=== PATIENT | female | born 1970 | race Caucasian/White ===

== ENCOUNTER 2018-03-21 06:04 | Inpatient (IN) | payer BC, OTHER ==
[2018-03-19 17:39] VITALS: BMI 28.5
[2018-03-21] MEDS ORDERED: fentaNYL CITRATE 250 MCG/5 ML VIAL ONE (07:10)
[2018-03-21] MEDS ORDERED: ROCURONIUM BROMIDE 50 MG/5 ML VIAL ONE ×2 (07:11→09:11)
[2018-03-21] MEDS ORDERED: SUCCINYLCHOLINE CHLORIDE 200 MG/10 ML VIAL ONE (07:11)
[2018-03-21] MEDS ORDERED: PROPOFOL 20 ML ONE (07:11)
[2018-03-21] MEDS ORDERED: DEXAMETHASONE SOD PHOSPHATE 4 MG/1 ML VIAL ONE (07:11)
[2018-03-21] MEDS ORDERED: CEFAZOLIN 1 GM in DEXTROSE 5%-WATER - 100 ML IVPB ONE (07:11)
[2018-03-21] MEDS ORDERED: LIDOCAINE HCL/PF 2% SDV 5ML VIAL ONE (07:11)
--- NOTE | 2018-03-21 07:11 | HP ---
History & Physical Update - History History: No Change - Physical Physical: No Change - Assessment Assessment: No Change - Plan Plan: No Change (full H&P in chart from 03/11/[address] Weiss)
[2018-03-21] MEDS ORDERED: DEXAMETHASONE SOD PHOSPHATE/PF 10 MG/ML SDV ONE (07:16)
[2018-03-21] MEDS ORDERED: ROPIVACAINE HCL 0.5% 30ML VIAL ONE (07:16)
[2018-03-21] MEDS ORDERED: BUPIVACAINE HCL/PF 0.5% (5MG/ML) 10 ML VIAL ONE (07:18)
[2018-03-21] MEDS ORDERED: MIDAZOLAM HCL 2 MG/2 ML SINGLE DOSE VIAL ONE ×2 (07:20)
[2018-03-21] MEDS ORDERED: ceFAZolin SODIUM 1 GM VIAL IVPB ONE (08:00)
[2018-03-21] MEDS ORDERED: ceFAZolin SODIUM 1 GM VIAL ONE ×3 (08:02→23:56)
[2018-03-21] MEDS ORDERED: METHYLENE BLUE 1% 10 MG/1 ML VIAL NR ONE (09:15)
[2018-03-21] MEDS ORDERED: NEOSTIGMINE METHYLSULFATE 0.5 MG/ML - 10 ML MDV ONE (10:05)
[2018-03-21] MEDS ORDERED: GLYCOPYRROLATE 0.2 MG/1 ML VIAL ONE (10:05)
[2018-03-21] MEDS ORDERED: BUPIVACAINE HCL/PF 0.5% (5MG/ML) 10 ML VIAL IJ ONE (10:14)
--- NOTE | 2018-03-21 11:01 | OP ---
DATE OF OPERATION: 03/21/2018 PREOPERATIVE DIAGNOSES: Leiomyomatous uterus, pelvic pain, intramural myomas, menorrhagia. OPERATION: Robotic, laparoscopic-attempted hysterectomy and exploratory laparotomy and total abdominal hysterectomy with bilateral salpingectomy and enterolysis. SURGEON: Ana Lilia Weiss MD CLOUD ENGINEER: NAIF Martin ANESTHESIA: General. NURSE PASTE MIXING SUPERVISOR: PROCEDURE: Patient was taken to the operating room and placed in dorsal lithotomy position, prepped and draped in the usual sterile fashion. Timeout was performed in accordance with hospital regulation. The cervix was grasped with a tenaculum. Cervix was dilated, and a Fublesare uterine manipulator was then inserted into the uterus. Kaba catheter was then placed. Attention was then drawn to the umbilicus where an 8-mm umbilical incision was made. Veress needle was inserted into the cavity. Approximately 3-4 L of CO2 was insufflated in the cavity. Veress needle was then removed, and an 8-mm trocar was then inserted. Laparoscope and camera were attached. Visualization revealed numerous bowel adhesions, severe and dense against the uterus. Two trocars were placed on the left parallel to the uterus and in the upper abdomen on the left side, and the AirSeal cannula was inserted. Two trocars were also inserted on the right side after incisions were made. Trocars were inserted under direct visualization. Patient was placed in steep Trendelenburg, and da Sury robot was side docked to the patient's arm. Trocars were then attached to the da Sury, and instruments were then inserted. Vessel sealer was inserted on the left, and EndoShears and tenaculum were inserted on the right. Numerous adhesions were seen. Bowel was stuck both on the left and the right side and also posterior to the uterus. Bowel grasper was then used to grasp the bowel, and EndoShears were then used to cut the adhesions. Uterus was noted to be very large, and due to inability to see after enterolysis had been performed laparoscopically with the robot and round ligaments identified and clamped and cut using vessel sealer, a decision was made to open the patient, and exploratory laparotomy was done. A Pfannenstiel skin incision was made with a scalpel. Cautery was then used to go through the layers of the abdominal wall to the level of the fascia. Fascia was cut in the midline. Cautery was then used to open the fascia in the following fashion. Kochers were then used to bluntly and sharply dissect the rectus muscle off the fascia. Muscles split in the midline. Peritoneal cavity was then entered and carried upward and downward. Uterus was then exteriorized. Multiple myomas were noted. Bowel was then still severely attached to the posterior aspect of the uterus. Lap pad was then used to remove the bowel from the uterus. The utero-ovarian ligaments identified, both on the left and the right. LigaSure was then used to clamp and cut the ligament. The uterine arteries were then skeletonized, and clamped and cut. Cardinal ligament was identified and clamped and cut after bowel was dissected out of the operative field. Methylene blue was given to the patient, and blue was seen coming out of the Kaba. The same procedure was repeated on the other side. Cervix was then identified. Decision was made to amputate at the cervical level. Cautery was then used to cut the cervix and remove the specimen, and the cervix was then removed using Binu scissors. The vagina was then closed using continuous and locking suture. Hemostasis was achieved. The tubes were bilaterally grasped and removed using LigaSure. Ovaries were still intact and attached to the infundibulopelvic ligament. Irrigation done. Interceed placed on the cuff after hemostasis had been achieved. Bowel was then looked at, and some serosa area was noted defect. Some 2-0 interrupted sutures were then placed on the serosa of the bowel. Two interrupted 2-0 Vicryls were placed on the bowel. Hemostasis was achieved. Packing was removed. Pack count noted to be normal. Peritoneum closed using 0 Vicryl suture. Abdominal sweep had been done. Ovaries were left in place. Peritoneum closed using 0 Vicryl suture, and muscle approximated midline using 0 Vicryl suture. Fascia was then closed using a 0 Vicryl suture in 2 parts. Subcutaneous was closed using interrupteds using 0 Vicryl suture. Skin was then closed using 3-0 Vicryl suture in subcuticular fashion. All incisions of the trocars were closed also with 3-0 Vicryl suture. Wound was washed and dressed. The patient had tolerated the procedure well. Estimated blood loss: 550 mL. Patient was taken to recovery room in stable condition. Beena [id number]
[2018-03-21] MEDS ORDERED: ONDANSETRON 4 MG/2 ML VIAL IVPUSH PRN (11:06)
--- NOTE | 2018-03-21 11:10 | OP ---
Operative Note - Note: Operative Date: 03/21/18 Pre-Operative Diagnosis: leimyomatous uterus Operation: robotic assisted converted to open abdominal hysterectomy with OBED, serosal tear repair, bilateral salpingectomy. Surgeon: Ana Lilia Weiss Night Auditor: Luna Rivera Anesthesiologist/SUPERVISOR SANDBLASTER: Alem Vernon Anesthesia: General Estimated Blood Loss (mls): 550 Drains, Volume Out (mls): 250 (lovell) Fluid Volume Replaced (mls): 2,600 Operative Report Dictated: Yes
[2018-03-21] MEDS: LACTATED RINGERS SOLUTION 1,000 ML/1,000 ML INFUS.BAG IV SCH (12:00)
[2018-03-21] MEDS ORDERED: HYDROmorphone *PCA* 10MG/50ML DISP.SYRIN PCA SCH (12:00)
[2018-03-21 12:03] LABS: BASO % 0.6 % (0-2.0); HEMATOCRIT 32.9 % (32.4-45.2); HEMOGLOBIN 10.7 GM/dL (10.7-15.3); LYMPH % 7.8 % (8-40); MCH 27.8 pg (25.7-33.7); MCHC 32.7 g/dl (32.0-36.0); MEAN PLT VOLUME 7.6 fl (7.5-11.1); MONO % 1.1 % (3.8-10.2); NEUT % 90.5 % (42.8-82.8); PLATELET COUNT 337 K/MM3 (134-434); RBC 3.87 M/mm3 (3.60-5.2); RDW 15.7 % (11.6-15.6)
--- NOTE | 2018-03-21 15:24 | SURG ---
Surgery Cellophane Casting Machine Repairer Note Cellophane Casting Machine Repairer: Luna Rivera PA-C Date of Service: 03/21/18 Diagnosis: leimyomatous uterus Procedure: robotic assisted converted to open abdominal hysterectomy with OBED, serosal tear repair, bilateral salpingectomy I was present for the entirety of the operative procedure. For further detail, please refer to operative report.
[2018-03-21] MEDS ORDERED: DEXTROSE 5%-WATER - 50 ML IVPB ONE ×2 (15:57→23:56)
[2018-03-21] MEDS: CEFAZOLIN 1 GM in DEXTROSE 5%-WATER - 50 ML IVPB SCH (16:04)
[2018-03-21 17:32] LABS: BASO % 0.1 % (0-2.0); HEMATOCRIT 32.6 % (32.4-45.2); HEMOGLOBIN 10.6 GM/dL (10.7-15.3); LYMPH % 5.3 % (8-40); MCH 27.5 pg (25.7-33.7); MCHC 32.6 g/dl (32.0-36.0); MEAN CELL VOLUME 84.1 fl (80-96); MEAN PLT VOLUME 7.9 fl (7.5-11.1); MONO % 2.9 % (3.8-10.2); NEUT % 91.7 % (42.8-82.8); PLATELET COUNT 328 K/MM3 (134-434); RBC 3.88 M/mm3 (3.60-5.2); RDW 15.4 % (11.6-15.6); WHITE BLOOD COUNT 9.3 K/mm3 (4.0-10.0)
[2018-03-21 18:17] LABS: ANION GAP 8 (8-16); BLOOD UREA NITROGEN 13 mg/dL (7-18); CALCIUM 7.9 mg/dL (8.5-10.1); CHLORIDE 104 mmol/L (98-107); CO2 27 mmol/L (21-32); CREATININE 0.6 mg/dL (0.55-1.02); GLUCOSE,RANDOM 134 mg/dL (74-106); POTASSIUM 4.1 mmol/L (3.5-5.1); SODIUM 139 mmol/L (136-145)
[2018-03-21 23:05] LABS: PLATELET ESTIMATE ADEQUATE
[2018-03-22] MEDS: CEFAZOLIN 1 GM in DEXTROSE 5%-WATER - 50 ML IVPB SCH (00:05)
[2018-03-22] MEDS: LEVOTHYROXINE NA 125 MCG TABLET (FP) PO SCH (06:25)
[2018-03-22 08:03] LABS: BASO % 0.5 % (0-2.0); EOS % 0.2 % (0-4.5); HEMATOCRIT 28.4 % (32.4-45.2); HEMOGLOBIN 9.5 GM/dL (10.7-15.3); MCH 28.4 pg (25.7-33.7); MCHC 33.6 g/dl (32.0-36.0); MEAN CELL VOLUME 84.5 fl (80-96); MEAN PLT VOLUME 7.4 fl (7.5-11.1); MONO % 10.3 % (3.8-10.2); PLATELET COUNT 288 K/MM3 (134-434); RBC 3.36 M/mm3 (3.60-5.2); RDW 15.2 % (11.6-15.6); WHITE BLOOD COUNT 8.2 K/mm3 (4.0-10.0)
[2018-03-22 08:19] LABS: ANION GAP 5 (8-16); BLOOD UREA NITROGEN 12 mg/dL (7-18); CHLORIDE 104 mmol/L (98-107); CO2 31 mmol/L (21-32); CREATININE 0.7 mg/dL (0.55-1.02); GLUCOSE,RANDOM 90 mg/dL (74-106); POTASSIUM 4.3 mmol/L (3.5-5.1); SODIUM 140 mmol/L (136-145)
--- NOTE | 2018-03-22 09:03 | PN ---
Progress Note, Physician Chief Complaint: Pt seen/evaluated. Doing well. Feels sore, but no other complaints. Lovell catheter draining clear yellow urine. No CP/SOB/F/C/AL. Tolerating clears. - Current Medication List Current Medications: Active Medications Acetaminophen (Tylenol -) 650 mg PO Q4H PRN PRN Reason: PAIN LEVEL 1-5 Enoxaparin Sodium (Lovenox -) 40 mg SQ DAILY [facility] Fentanyl (Sublimaze Injection -) 50 mcg IVPUSH [id number] PRN PRN Reason: PAIN-PACU ORDER X 4 DOSES ONLY Last Admin: 03/21/18 11:35 Dose: 50 mcg Hydromorphone HCl (Dilaudid Hand Cloth Cutter -) 10 mg SALES MERCHANDISER SALES MERCHANDISER [facility]; Protocol Stop: 03/24/18 11:48 Last Admin: 03/21/18 12:00 Dose: 10 mg Lactated Ringer's (Lactated Ringers Solution) 1,000 ml in 1,000 mls @ 125 mls/ hr IV ASDIR [facility] Last Admin: 03/21/18 12:00 Dose: 125 mls Levothyroxine Sodium (Synthroid -) 125 mcg PO DAILY@0700 [facility] Last Admin: 03/22/18 06:25 Dose: 125 mcg Ondansetron HCl (Zofran Injection) 4 mg IVPUSH Q6H PRN PRN Reason: NAUSEA AND/OR VOMITING - Objective Vital Signs: Vital Signs Temperature 98.3 F 03/22/18 06:00 Pulse Rate 74 03/22/18 06:00 Respiratory Rate 20 03/22/18 06:00 Blood Pressure 108/67 03/22/18 06:00 O2 Sat by Pulse Oximetry (%) 98 03/21/18 13:00 Constitutional: Yes: Well Nourished, No Distress, Calm Eyes: Yes: WNL HENT: Yes: WNL Respiratory: Yes: WNL Gastrointestinal: Yes: Soft, Tenderness (appropriate post surgical tenderness) Extremities: Yes: WNL Wound/Incision: Yes: Clean/Dry, Dressing Dry and Intact Psychiatric: Yes: Alert, Oriented Labs: CBC, BMP 03/22/18 07:30 03/22/18 07:30 Problem List - Problems (1) History of abdominal hysterectomy Code(s): Z90.710 - ACQUIRED ABSENCE OF BOTH CERVIX AND UTERUS Assessment/Plan 47 y/o POD#1 s/p robotic converted to EFRAIN, OBED, b/l salpingectomy AFVSS Hgb 9.5, will monitor, asymptomatic advance diet as tolerated dc lovell later today encourage ambulation this afternoon routine post op care
--- NOTE | 2018-03-22 09:19 | PN ---
Progress Note (short form) - Note Progress Note: Post op day#1.S/P EFRAIN with bilateral salpingectomy under Ga uneventful.Patient stable and has pain score of 2-3/10.So will Dc MATERIAL HANDLING WAREHOUSE SUPERVISOR and put patient on PRN pain medication.No any anesthesia related problem.Patient Dc from the anesthesia care.
[2018-03-22] MEDS ORDERED: ENOXAPARIN NA (PORCINE) 30 MG/0.3 ML DISP.SYRIN SQ SCH (10:00)
[2018-03-22] MEDS ORDERED: LEVOTHYROXINE NA 75 MCG TABLET (FP) PO SCH (10:00)
[2018-03-22] MEDS ORDERED: HYDROmorphone HCL CARPU-JECT 1 MG/1 ML DISP.SYRIN IVPB PRN (10:15)
[2018-03-22] MEDS: ENOXAPARIN NA (PORCINE) 40 MG/0.4 ML DISP.SYRIN SQ SCH (10:37)
[2018-03-22] MEDS: ACETAMINOPHEN 325 MG TABLET (FP) PO PRN ×3 (10:58→19:22)
[2018-03-22] MEDS: oxyCODONE HCL 5 MG TABLET PO PRN ×3 (10:59→19:19)
[2018-03-22] MEDS: LACTATED RINGERS SOLUTION 1,000 ML/1,000 ML INFUS.BAG IV SCH (12:39)
--- NOTE | 2018-03-22 15:13 | PN ---
Progress Note (short form) - Note Progress Note: Surgery POD #1 robotic converted to open hysterectomy. Patient seen and examined at bedside c/o some nausea and vomiting x2 with movement while getting OOB. Her ELECTRONIC TESTER has been d/c's and her pain is managed with oral medications. Her lovell removed about an hour ago but she has not yet voided. She is tolerating a regular diet and passing flatus but still with some nausea. Vital Signs Temp 98.8 F 03/22/18 09:00 Pulse 78 03/22/18 09:00 Resp 20 03/22/18 09:00 BP 103/62 03/22/18 09:00 Pulse Ox 98 03/21/18 13:00 Intake & Output 03/21/18 03/22/18 03/22/18 23:59 11:59 23:59 Intake Total 925 1850 Output Total 1150 650 Balance -225 1200 Intake: IV 875 1400 LACTATED RINGERS SOLUTION 750 1400 1,000 ml In 1,000 ml @ 125 mls/hr IV ASDIR ESTELA Rx#:[id number] IVPB 50 50 Oral 400 Output: Urine 1150 650 Lovell 800 650 Other: Voiding Method Indwelling Catheter Indwelling Catheter PE: A&OX3, NAD unlabored resp on RA ABD: Obese,soft and mildly ttp throughout mostly at the midline-appropriate to status. dressings c/d/i with no evidence of erythema or ecchymosis. Incision with steri strips and c/d/i with no d/c. b/l LE compartments soft, supple and non-tender with +2 pedal pulses. Problem List - Problems (1) S/P abdominal hysterectomy Assessment/Plan: POD #1 doing well with nausea and vomiting resolving. 1) DVT prophylaxis 2) OOB as tolerated 3) pain control 4) encourage IS 5) d/c planning for home possibly tomorrow. Evaluation and plan discussed with Dr Weiss Code(s): Z90.710 - ACQUIRED ABSENCE OF BOTH CERVIX AND UTERUS (2) History of abdominal hysterectomy Code(s): Z90.710 - ACQUIRED ABSENCE OF BOTH CERVIX AND UTERUS
[2018-03-22] MEDS ORDERED: PCA PUMP KEY 1 EACH EACH ONE (16:42)
[2018-03-23] MEDS: oxyCODONE HCL 5 MG TABLET PO PRN ×3 (01:44→20:44)
[2018-03-23] MEDS: ACETAMINOPHEN 325 MG TABLET (FP) PO PRN ×3 (01:47→20:45)
--- NOTE | 2018-03-23 02:59 | DS ---
"Physical Examination Vital Signs: Vital Signs Temperature 99 F 03/22/18 22:00 Pulse Rate 76 03/22/18 22:00 Respiratory Rate 20 03/22/18 22:00 Blood Pressure 102/56 03/22/18 22:00 O2 Sat by Pulse Oximetry (%) 98 03/21/18 13:00 Labs: CBC, BMP 03/22/18 07:30 03/22/18 07:30 Discharge Summary Reason For Visit: LEIOMYOMATOUS UTERUS Current Active Problems History of abdominal hysterectomy (Acute) S/P abdominal hysterectomy (Acute) Procedures: Principal: EFRAIN, Bilateral salpingectomy, OBED Hospital Course: Pt admitted on 03/21/18 for scheduled Robotic Laparoscopic Hysterectomy with bilateral salpingectomy. Pt underwent procedure which was converted to EFRAIN/ OBED/ bilateral salpingectomy. The patient underwent a post op recovery complicated by nausea. On post op day 3 the patient was discharged home in stable condition. Condition: Good - Instructions Diet, Activity, Other Instructions: Dr. Ana Lilia Weiss Sales Representative [employer] discharge instructions Physical activity Resume your normal everyday activity as tolerated no heavy lifting or exercise until seen by your surgeon. You may walk unlimited radha of and climb stairs. You may resume driving the car when you feel safe and comfortable behind the wheel. No sexual activity as instructed by Dr. Weiss. Wound care If you have a bandage, leave it on, and keep dry for 48-72 hours. After that time discard the outer bandage. If they are tapes on the skin under the out of bandage leave them in place. They will peel off in the next 7 to 10 days. Do Not Peel them off. You may shower the day after surgery. If there are tapes present on the skin, you may shower over them. Diet There are no dietary restrictions. Eat healthy, high-fiber foods. Drink 6 to 8 glasses of liquid each day. This will assist in keeping your bowels are regular. Pain management You may take Tylenol or acetaminophen or Ibuprofen (for example, Motrin, Advil etc.) from my pain prescription medication is ordered should be taken as prescribed for moderate to severe pain. Call Dr. Weiss for any of the following: Severe pain not relieved by medication Fever of 101 or higher Excessive bleeding or drainage on dressing Inability to urinate Call the office for an appointment in seven days. [place] Prescription Monitoring report was requested by: Hemalatha Rosas | Reference #: [id number] Search Terms: ewelinara grimes, 1970 Search Date: 03/21/2018 01:23:35 PM Disposition: HOME - Home Medications Comprehensive Discharge Medication List: Ambulatory Orders Levothyroxine [Synthroid -] 75 mg PO DAILY 03/19/18 Oxycodone HCl/Acetaminophen [Percocet 5-325 mg Tablet] 1 - 2 tab PO Q4H PRN #20 tablet MDD 6 03/22/18"
[2018-03-23] MEDS: LEVOTHYROXINE NA 125 MCG TABLET (FP) PO SCH (06:40)
--- NOTE | 2018-03-23 07:27 | PN ---
Progress Note, Physician Chief Complaint: Pt with vomiting yesterday and some nausea this a.m. Tolerating minimal clears. NO CP/F/C/SOB. Pain in RLQ under incision. - Current Medication List Current Medications: Active Medications Acetaminophen (Tylenol -) 650 mg PO Q4H PRN PRN Reason: PAIN LEVEL 1-5 Last Admin: 03/23/18 01:47 Dose: 650 mg Enoxaparin Sodium (Lovenox -) 40 mg SQ DAILY [facility] Last Admin: 03/22/18 10:37 Dose: 40 mg Fentanyl (Sublimaze Injection -) 50 mcg IVPUSH [id number] PRN PRN Reason: PAIN-PACU ORDER X 4 DOSES ONLY Last Admin: 03/21/18 11:35 Dose: 50 mcg Hydromorphone HCl (Dilaudid Bottom Bleacher -) 10 mg NUCLEAR FUEL PROCESSING TECHNICIAN NUCLEAR FUEL PROCESSING TECHNICIAN [facility]; Protocol Stop: 03/24/18 11:48 Last Admin: 03/21/18 12:00 Dose: 10 mg Hydromorphone HCl (Dilaudid Injection -) 1 mg IVPB Q4H PRN PRN Reason: PAIN LEVEL 6-10 Lactated Ringer's (Lactated Ringers Solution) 1,000 ml in 1,000 mls @ 125 mls/ hr IV ASDIR [facility] Last Admin: 03/22/18 12:39 Dose: 125 mls/hr Levothyroxine Sodium (Synthroid -) 125 mcg PO DAILY@0700 [facility] Last Admin: 03/23/18 06:40 Dose: 125 mcg Ondansetron HCl (Zofran Injection) 4 mg IVPUSH Q6H PRN PRN Reason: NAUSEA AND/OR VOMITING Last Admin: 03/22/18 15:55 Dose: 4 mg Oxycodone HCl (Roxicodone -) 5 mg PO Q3H PRN PRN Reason: PAIN LEVEL 1-5 Last Admin: 03/23/18 01:44 Dose: 5 mg - Objective Vital Signs: Vital Signs Temperature 98.5 F 03/23/18 05:51 Pulse Rate 70 03/23/18 05:51 Respiratory Rate 18 03/23/18 05:51 Blood Pressure 105/66 03/23/18 05:51 O2 Sat by Pulse Oximetry (%) 98 03/21/18 13:00 Constitutional: Yes: Well Nourished, No Distress, Calm Eyes: Yes: Conjunctiva Clear, EOM Intact HENT: Yes: Atraumatic, Normocephalic Neck: Yes: Supple, Trachea Midline Cardiovascular: Yes: Regular Rate and Rhythm Respiratory: Yes: Regular, CTA Bilaterally Gastrointestinal: Yes: Soft, Tenderness (appropriate RLQ post surgical tenderness) Wound/Incision: Yes: Well Approximated, Sutures Intact, Steri Strips, Open to air Neurological: Yes: Alert, Oriented Psychiatric: Yes: Alert, Oriented Labs: CBC, BMP 03/22/18 07:30 03/22/18 07:30 Problem List - Problems (1) History of abdominal hysterectomy Code(s): Z90.710 - ACQUIRED ABSENCE OF BOTH CERVIX AND UTERUS (2) Nausea Code(s): R11.0 - NAUSEA Assessment/Plan 47 y/o POD#2 s/p robotic converted to EFRAIN, OBED, b/l salpingectomy AFVSS Hgb 9.5 yesterday pt with some nausea, trying clears again this a.m. - advance diet as tolerated encourage ambulation this afternoon routine post op care if able to tolerate diet ok for d/c home today
[2018-03-23 08:18] LABS: EOS % 1.4 % (0-4.5); HEMOGLOBIN 8.8 GM/dL (10.7-15.3); LYMPH % 26.4 % (8-40); MCH 28.6 pg (25.7-33.7); MCHC 33.8 g/dl (32.0-36.0); MEAN CELL VOLUME 84.5 fl (80-96); MEAN PLT VOLUME 7.2 fl (7.5-11.1); MONO % 8.2 % (3.8-10.2); PLATELET COUNT 269 K/MM3 (134-434); RBC 3.08 M/mm3 (3.60-5.2); RDW 15.6 % (11.6-15.6); WHITE BLOOD COUNT 5.7 K/mm3 (4.0-10.0)
[2018-03-23 08:48] LABS: CHLORIDE 101 mmol/L (98-107); POTASSIUM 3.6 mmol/L (3.5-5.1); SODIUM 136 mmol/L (136-145)
[2018-03-23 08:58] LABS: ANION GAP 7 (8-16); BLOOD UREA NITROGEN 7 mg/dL (7-18); CO2 28 mmol/L (21-32); CREATININE 0.6 mg/dL (0.55-1.02); GLUCOSE,RANDOM 87 mg/dL (74-106)
[2018-03-23] MEDS: PANTOPRAZOLE 20 MG TABLET (FP) PO SCH ×2 (09:14→21:26)
[2018-03-23] MEDS: ENOXAPARIN NA (PORCINE) 40 MG/0.4 ML DISP.SYRIN SQ SCH (09:14)
[2018-03-24] MEDS: LEVOTHYROXINE NA 125 MCG TABLET (FP) PO SCH (06:26)
[2018-03-24] MEDS: oxyCODONE HCL 5 MG TABLET PO PRN ×2 (06:31→09:59)
[2018-03-24] MEDS: ACETAMINOPHEN 325 MG TABLET (FP) PO PRN ×2 (06:32→09:59)
[2018-03-24] MEDS: ENOXAPARIN NA (PORCINE) 40 MG/0.4 ML DISP.SYRIN SQ SCH (09:03)
[2018-03-24] MEDS: PANTOPRAZOLE 20 MG TABLET (FP) PO SCH (09:03)
[2018-03-24 09:29] VITALS: BP 106/63; PULSE 78; TEMP 98.5
--- NOTE | 2018-03-28 17:11 | PATH ---
Surgical Pathology Report Patient Name: SILVIO CAMPBELL [facility]. Rec. #: [id number] /Age/Gender: 1970 (Age: 47) / F Account: [id number] [facility] OBS/GREEN ENERGY MARKETING ANALYST Taken: 03/21/2018 Received: 03/21/2018 Reported: 03/28/2018 Physicians: Ana Lilia Weiss M.D. Specimen(s) Received A: UTERUS AND CERVIX B: LEFT FALLOPIAN TUBE C: RIGHT FALLOPIAN TUBE Clinical History Leiomyomatous uterus Final Diagnosis A. UTERUS, CERVIX, HYSTERECTOMY: LEIOMYOMATA. ADENOMYOSIS. PROLIFERATIVE ENDOMETRIUM WITH CHRONIC ENDOMETRITIS. CERVIX, NEGATIVE FOR DYSPLASIA. B. LEFT FALLOPIAN TUBE, RESECTION: FALLOPIAN TUBE WITH NO DIAGNOSTIC ABNORMALITIES. C. RIGHT FALLOPIAN TUBE, RESECTION: FALLOPIAN TUBE WITH NO DIAGNOSTIC ABNORMALITIES. Electronically Signed Ruben Thomas M.D. Gross Description A. Received in formalin labeled "uterus and cervix," is a 397 g supracervically amputated uterus with no attached adnexa. The unoriented cervix is separately received within the same container. The specimen measures 12 cm from superior to inferior, 9.2 cm from left to right and 7.5 cm from anterior to posterior. The serosa is grossman-almanza with adhesions. The endometrial cavity measures 8 cm in length and 3.5 cm from cornu to cornu. The endometrium is grossman-brown and averages 0.2 cm in thickness. There is a 2.0 x 1.5 cm submucosal nodule present. The myometrium displays abundant intramural nodules, measuring up to 4.5 cm in greatest dimension. The cut surface of the submucosal and intramural nodules is grossman, rubbery and displays whorled architecture. No areas of hemorrhage or necrosis are identified. The remaining myometrium is grossman-pink and measures up to 3.8 cm in thickness. The unoriented cervix is separately received within the same container and measures 2.5 cm in length and averages 2.0 cm in diameter. The ectocervix is grossman, smooth and glistening. The endocervix is unremarkable. Also received within the same container are 2 rubbery nodules, consistent with fibroids. The separately received fibroids are 27 g in aggregate and measure 2.7 and 4.0 cm in greatest dimension. The cut surface of the fibroids is grossman and rubbery with whorled architecture. No areas of hemorrhage or necrosis are identified. Circular Knife Cutter Machine sections are submitted in 15 cassettes as follows: 5-3-efxffzee endomyometrium; 5-6-fbmnlwrgg endomyometrium; 9-4-vfjzcssxnm nodule; 7-8-largest intramural nodule; 8-67-yobhrrwowk intramural nodules; 71-52-bfwtxwctpq received, unoriented cervix; 13-separately received smaller fibroid; 31-00-klyqbhzpkc received a larger fibroid. B. Received in formalin labeled "left fallopian tube," is a 2.0 x 1.5 x 1.3 cm grossman cano portion of soft tissue, consistent with a markedly convoluted portion of fallopian tube. The specimen displays attached fimbria. Sectioning reveals unremarkable fallopian tube lumen. Circular Knife Cutter Machine sections are submitted in 2 cassettes as follows: 1-fimbria; 2-cross sections of fallopian tube. C. Received in formalin labeled "right fallopian tube," is a 3.5 cm in length fimbriated portion of fallopian tube. The outer surface is grossman-cano and smooth. Sectioning reveals an unremarkable lumen with edematous surrounding tissue. Circular Knife Cutter Machine sections are submitted in 2 cassettes as follows: 1-fimbria; 2-cross sections of fallopian tube. 03/22/2018 [facility]03/22/2018
== END 2018-03-24 10:52 | disposition home or self-care (01) | DRG 743 ==
LOC: JASUSAT 06:04 → JSAMEDAYSX 10:57 → J3W 13:04
PROVIDERS: ADMIT Obstetrics & Gynecology; ATTEND Obstetrics & Gynecology
PROC: 0UT70ZZ Resection of Bilateral Fallopian Tubes, Open Approach (ICD-10-PCS; 2018-03-21)
PROC: 0DNW0ZZ Release Peritoneum, Open Approach (ICD-10-PCS; 2018-03-21)
PROC: 0WJJ0ZZ Inspection of Pelvic Cavity, Open Approach (ICD-10-PCS; 2018-03-21)
PROC: 8E0W3CZ Robotic Assisted Procedure of Trunk Region, Percutaneous Approach (ICD-10-PCS; 2018-03-21)
PROC: 0UT90ZZ Resection of Uterus, Open Approach (ICD-10-PCS; principal; 2018-03-21 07:30)
DX: D25.1 Intramural leiomyoma of uterus (principal); N73.6 Female pelvic peritoneal adhesions (postinfective); Z53.31 Laparoscopic surgical procedure converted to open procedure; E66.9 Obesity, unspecified; Z68.28 Body mass index [BMI] 28.0-28.9, adult
CPT/HCPCS: 36415; 74019-TC-FY; 80048; 84703; 85025; 86850; 86900; 86901; 88302-TC; 88307-TC; 94010; 94760